=== PATIENT | male | born 1965 | race Caucasian/White ===

== ENCOUNTER 2016-09-23 19:53 | Emergency (ER) | payer MEDICARE ==
[2016-09-23] MEDS ORDERED: ZIPRASIDONE MESYLATE 20 MG VIAL IM ONE (20:37)
[2016-09-23] MEDS ORDERED: diphenhydrAMINE HCL 50 MG/ML VIAL IM ONE (20:37)
[2016-09-23] MEDS ORDERED: LORazepam 2 MG/ML DISP.SYRIN IM ONE (20:37)
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
[2016-09-23 20:50] LABS: Hematocrit 49.5 % (42.0-52.0); Mean Cell Volume 92.4 fl (78-100); Mean Corpuscular Hemoglobin 31.7 pg (27-31); Mean Corpuscular Hgb Conc 34.3 g/dl (32-36); Mean Platelet Volume 9.9 fl (6.0-9.5); Neutrophil # 7.5 K/mm3 (1.3-6.0); Neutrophil % 72.9 % (42-75.0); Platelet Count 227 K/mm3 (150-450); Red Blood Count 5.36 M/mm3 (4.7-6.0); Red Cell Distribution Width 13.6 % (11.5-14.0); White Blood Count 10.3 K/mm3 (4.0-10.5)
--- OUTSIDE RECORDS SUMMARY | 2016-09-23 20:52 | XMS REPORT | Continuity of Care Document ---
:1965 Author Organization [facility] ([facility]) Address [place] [address] Phone [phone] Care Team Providers Name Role Phone Elian Cortez Primary Care Provider [phone] Source Comments This disclosure is being made pursuant to the Care Everywhere program, applicable federal and state laws, and may not contain all informaitonavailable regarding this patient.[facility] ([facility]) Active Allergies and Adverse Reactions No Known Allergies Current Medications Prescription Sig. Disp. Refills Start Date End Date Status clonazePAM 0.5 mg Take 0.5 mg by Active tablet mouth 3 times daily SERTraline 100 mg Take 100 mg by Active tablet mouth daily QUEtiapine 100 mg Take 100 mg by Active tablet mouth at bedtime as needed atorvastatin 40 mg Take 1 tablet (40 90 tablet 4 07/22/2015 Active tablet mg total) by mouth every evening aspirin 81 mg chewable Take 1 tablet (81 90 tablet 4 07/22/2015 Active tablet mg total) by mouth daily clopidogrel 75 mg Take 1 tablet (75 90 tablet 4 07/22/2015 Active tablet mg total) by mouth daily metoPROLol tartrate 25 Take 1/2 tablet 90 tablet 4 07/22/2015 Active mg tablet (12.5 mg total) by mouth 2 times daily nitroglycerin 0.[address] 1 tablet 25 tablet 11 07/22/2015 Active tablet (0.4 mg total) under the tongue every 5 minutes as needed potassium chloride 10 03/16/2016 Active mEq XR capsule lisinopril 2.5 mg Take 2.5 mg by 03/16/2016 Active tablet mouth daily. furosemide 20 mg tablet 03/16/2016 Active divalproex 500 mg XR 03/17/2016 Active tablet (24 hour) Active Problems Problem Noted Date History of heart block 07/20/2015 Chest pain 07/17/2015 Lumbago 10/05/2006 Hypertension Hyperlipidemia Old myocardial infarction Coronary artery disease Overview: CARDIOVASCULAR PROCEDURES CATH Cath:1. Occluded distal RCA with heavy thrombotic burden. PCI not done due to completed infarct, and absence of chest pain 2. Depressed LV systolic function (LVEF ~40% with inferior akinesis) 2014 ECHO Echo:Normal left ventricular size. Left ventricular wall thickness is upper limit of normal . LV Ejection Fraction=50-55% (based on visual estimate). E/E' ratio is 8.4, which predicts normal LV filling pressure. No regional wall motion abnormalities noted. No significangt valvujlar abnormalities. 07/17/2015 Echo: [facility]. EF 35%. Mild MR. 11/10/2015 Tobacco abuse Noncompliance with medication regimen Resolved Problems Problem Noted Date Resolved Date Junctional rhythm 07/20/2015 05/03/2016 Acute systolic heart failure 07/20/2015 04/26/2016 ST elevation myocardial infarction (STEMI) of inferior wall, 07/18/201504/26 initial episode of care Social History Tobacco Use Types Packs/Day Years Used Date Current Every Day Smoker 1 6 Tobacco Cessation:Ready to Quit: Yes; Counseling Given: Yes Comments: Alcohol Use Drinks/Week oz/Week Comments No 0 Standard drinks or equivalent 0.0 Last Filed Vital Signs Vital Sign Reading Time Taken Blood Pressure 110/64 05/03/2016 9:55 AM CDT Pulse 72 05/03/2016 9:55 AM CDT Temperature 36.6 C (97.9 F) 07/22/2015 11:57 AM WATCH DIAL PRINTER Respiratory Rate 16 07/22/2015 11:57 AM WATCH DIAL PRINTER Height 1.803 m (5' 11") 05/03/2016 9:55 AM CDT Weight 113.853 kg (251 lb) 05/03/2016 9:55 AM CDT Body Mass Index 35.02 05/03/2016 9:55 AM CDT Oxygen Saturation 94% 07/22/2015 11:57 AM WATCH DIAL PRINTER Plan of Care Health Maintenance Due Date Last Done Comments HCV Screening 1965 Hepatitis B Vaccine (1 of 3 - Primary Series) 1965 Tdap Vaccine 11/11/1974 MMR Vaccine 11/11/1981 Td Vaccine 11/11/1981 Pneumococcal Vaccine (1 of 1 - PPSV23) 11/11/1982 Colonoscopy 11/11/2013 Prostate Cancer Screening 11/11/2013 Influenza Vaccine: Seasonal (#1) 02/29/2016 Lipid Disorder Screening 07/17/2020 07/17/2015 Results from Last 3 Months Not on file
[2016-09-23] MEDS ORDERED: diphenhydrAMINE HCL 50 MG/ML VIAL ONE (21:04)
[2016-09-23] MEDS ORDERED: LORazepam 2 MG/ML DISP.SYRIN ONE (21:05)
[2016-09-23 21:10] LABS: ALT 23 U/L (19-67); AST 24 U/L (0-48); Albumin * 4.4 gm/dl (3.4-5.0); Alkaline Phosphatase * 104 U/L (50-170); Anion Gap 12.3 mmol/L (6.8-13.8); BUN/Creatinine Ratio 6.3 (9.0-21.6); Bilirubin, Total 1.3 mg/dL (0.0-1.1); Blood Urea Nitrogen 8 mg/dL (6-23); Ca. Corrected For Albumin 8.6 mg/dL (8.4-10.2); Calcium * 9.2 mg/dL (7.9-10.9); Carbon Dioxide 27.5 mmol/L (24-32.6); Chloride 103 mmol/L (97-106); Glucose * 90 mg/dL (70-110); Potassium 3.8 mmol/L (3.4-4.6); Sodium 139 mmol/L (132-142); Total Protein 8.7 gm/dL (6.2-8.2)
[2016-09-23] MEDS ORDERED: ONDANSETRON 4 MG TAB.RAPDIS PO ONE (21:11)
[2016-09-23] MEDS ORDERED: ONDANSETRON 4 MG TAB.RAPDIS ONE (21:12)
[2016-09-23 21:13] LABS: Troponin I Less than 0.017 ng/ml (0.00-0.10)
[2016-09-23 21:29] LABS: Cocaine Ur Negative (NEGATIVE); Urine Barbiturate Negative (NEGATIVE); Urine Opiates Negative (NEGATIVE); Urine PCP Negative (NEGATIVE)
[2016-09-23 21:33] LABS: Urine Benzodiazepines Positive (NEGATIVE); Urine THC Positive (NEGATIVE)
[2016-09-23 21:35] LABS: Urine Appearance Clear; Urine Bilirubin Negative (NEGATIVE); Urine Color Yellow; Urine Ketone Negative (NEGATIVE); Urine Nitrite Negative (NEGATIVE); Urine Protein Negative (NEGATIVE); Urine Specific Gravity 1.025 SP.GR. (1.005-1.030); Urine Urobilinogen Normal (NORMAL); Urine pH 5.5 pH (5.0-7.0)
[2016-09-23 21:36] LABS: Urine Bacteria None Seen; Urine Blood 25 /ul (NEGATIVE); Urine RBC 0-5 /hpf (0-5); Urine WBC 0-5 /hpf (0-5)
[2016-09-24] MEDS ORDERED: NORMAL SALINE 2,000 ML IV ONE (02:11)
[2016-09-24] MEDS ORDERED: FAMOTIDINE 10 MG/ML VIAL IV ONE (02:11)
[2016-09-24] MEDS ORDERED: ONDANSETRON HCL/PF 2 MG/ML VIAL IV ONE (02:11)
[2016-09-24 10:27] VITALS: BP 119/81
== END 2016-09-24 09:38 | disposition home or self-care (01) ==
LOC: ER 19:53
DX: F41.1 Generalized anxiety disorder (principal); R45.4 Irritability and anger; F33.3 Major depressive disorder, recurrent, severe with psychotic symptoms; Z72.0 Tobacco use
CPT/HCPCS: 36415; 71020; 80053; 80307; 81001; 84484; 85025; 93005; 94760; 96372; 99284; G0480; G0481

== ENCOUNTER 2017-03-23 13:16 | Emergency (ER) | payer MEDICARE ==
[2017-03-23 14:29] LABS: Hematocrit 43.2 % (42.0-52.0); Hemoglobin 15.1 gm/dL (13.5-18.0); Mean Cell Volume 93.7 fl (78-100); Mean Corpuscular Hemoglobin 32.8 pg (27-31); Mean Platelet Volume 9.8 fl (6.0-9.5); Neutrophil # 4.2 K/mm3 (1.3-6.0); Platelet Count 223 K/mm3 (150-450); Red Blood Count 4.61 M/mm3 (4.7-6.0); White Blood Count 6.8 K/mm3 (4.0-10.5)
[2017-03-23] MEDS ORDERED: HALOPERIDOL LACTATE 5 MG/ML VIAL IM ONE (14:42)
[2017-03-23 14:50] LABS: ALT 94 U/L (19-67); AST 96 U/L (0-48); Acetaminophen * 0.7 mcg/mL (10.0-30.0); Albumin * 3.4 gm/dl (3.4-5.0); Alkaline Phosphatase * 76 U/L (50-170); Anion Gap 7.1 mmol/L (6.8-13.8); BUN/Creatinine Ratio 11.1 (9.0-21.6); Bilirubin, Total 0.3 mg/dL (0.0-1.1); Blood Urea Nitrogen 11 mg/dL (6-23); Ca. Corrected For Albumin 9.1 mg/dL (8.4-10.2); Calcium * 8.9 mg/dL (7.9-10.9); Carbon Dioxide 28.5 mmol/L (24-32.6); Chloride 102 mmol/L (97-106); Glucose * 96 mg/dL (70-110); Potassium 3.6 mmol/L (3.4-4.6); Salicylate 3.3 mg/dL (2.8-20.0); Sodium 134 mmol/L (132-142); Total Protein 7.2 gm/dL (6.2-8.2)
[2017-03-23 14:50] LABS: Urine Bilirubin Negative (NEGATIVE); Urine Blood Negative /ul (NEGATIVE); Urine Ketone Negative (NEGATIVE); Urine Nitrite Negative (NEGATIVE); Urine Protein Negative (NEGATIVE); Urine Urobilinogen Normal (NORMAL)
[2017-03-23 15:00] LABS: Urine Appearance Clear; Urine Bacteria None Seen; Urine Color Yellow; Urine RBC None Seen /hpf (0-5); Urine WBC None Seen /hpf (0-5)
[2017-03-23 15:07] LABS: Cocaine Ur Negative (NEGATIVE); Urine Barbiturate Negative (NEGATIVE); Urine Benzodiazepines Negative (NEGATIVE); Urine PCP Negative (NEGATIVE)
[2017-03-23 15:10] LABS: Urine THC Positive (NEGATIVE)
[2017-03-23] MEDS ORDERED: HALOPERIDOL LACTATE 5 MG/ML VIAL ONE (15:11)
[2017-03-23 15:25] LABS: Urine Opiates Positive (NEGATIVE)
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
--- NOTE | 2017-03-23 18:36 | ERNOTE ---
Psychological HPI - Date Date of Service: 03/23/17 - General Chief Complaint: Psychiatric Problem Source: Reports: patient Exam Limitations: Reports: clinical condition - Immun/Allergies/Home Medications Allergies/Adverse Reactions: Allergies No Known Allergies Allergy (Verified 03/23/17 13:27) Home Medications: HOME MEDICATIONS Aspirin [Aspirin EC] 81 mg PO DAILY@1200 #100 tablet. 03/01/16 [Last Taken Unknown] Atorvastatin Calcium 20 mg PO DAILY #30 tablet 03/01/16 [Last Taken Unknown] Sertraline HCl [Zoloft] 200 mg PO DAILY 03/01/16 [Last Taken 02/29/16] clonazePAM [Klonopin] 2 mg PO TID 03/01/16 [Last Taken 09/23/16 8 tablets] - History of Present Illness Narrative: Patient presents to the ED for bizarre behavior. I reviewed nursing noted. When I ask him why he is here he tells me that he hit his head and saw laughing puppets. He tells me he feels weak all over. He is not very forthcoming with me but tells be he has an orange piece of paper that will tell me why he is here. He denies CP/SOB. States some headache but cannot rate it. Nursing noted bizarre and disorganized thoughts. He is see by psych here. It is noted that he has been having progressively worsening and bizarre behavior. no clear SI or HI. Time Seen by Provider: 03/23/17 13:49 Onset/duration: Reports: gradual onset Intent: Denies: suicide Associated Symptoms: Denies: suicidal thoughts Prior Treament: Denies: recently seen Review of Systems - Narrative Narrative: difficult to obtain given his underlying psychiatric symptoms. - Review of Systems Constitutional: Absent: fever Respiratory: Absent: shortness of breath Cardiology: Absent: chest pain Gastrointestinal/Abdominal: Absent: abdominal pain Neurological: Present: See HPI - Patient's Past Medical History Patient History - Medical: Anxiety, Arthritis, Depression, Other Patient History - Cardiac/Respiratory: Bronchitis, Hypertension, Hyperlipidemia , Myocardial Infarction, Pneumonia Patient History - Cancer: No Hx of Cancer Patient History - Surgical Procedures: Cardiac stent, T & A, Other, Orthopedic Patient History - Other: None - Family History Father Family History - Medical: , Other - Social History Living Situations: home Abuse History: No History of abuse Psych History: Hx of Depression, Hx of Violent Behavior, Current tx/ever been on anti-depressants or anti-anxiety meds Smoking Status: Current every day smoker Alcohol Use: occasionally Drug Use: none - Immunizations Immunizations Up to Date: Yes Hx Pneumococcal Vaccination: No History of Influenza Vaccine: No Physical Exam - Physical Exam General Appearance: Present: alert, no apparent distress Head Exam: Present: normal inspection, no evidence of injury Eye Exam: Normal inspection: bilateral, PERRL: bilateral Ears, Nose, Throat: Present: normal ENT inspection Neck: Present: normal inspection, nontender Respiratory: Present: no respiratory distress, no accessory muscle use, lungs clear Cardiovascular/Chest: Present: regular rate, rhythm Gastrointestinal/Abdominal: Present: normal bowel sounds, nontender, soft Back Exam: Present: no vertebral tenderness Extremity Exam: Present: normal range of motion Neurological Exam: Present: alert, other - no acute unilateral focal motor or sensory deficits. Bizarre thoughts, seems disorganized. Skin Exam: Present: normal color, warm/dry ED Progress - Results and Orders Patient's Lab Results:: I have reviewed the patient's lab results. - Vital Signs Patient's Vital Signs:: I have reviewed the patient's vital signs. Vital Signs: Vital Signs 03/23/17 03/23/17 03/23/17 13:21 13:46 15:05 Temperature 36.5 C Pulse Rate 95 95 78 Respiratory 15 16 Rate Blood Pressure 146/91 106/73 O2 Sat by Pulse 96 97 Oximetry 03/23/17 03/23/17 03/23/17 15:19 15:50 16:07 Temperature Pulse Rate 80 76 73 Respiratory 15 15 15 Rate Blood Pressure 105/88 96/48 91/53 O2 Sat by Pulse 96 95 95 Oximetry - CT/Ultrasound CT/Ultrasound Narrative: CT head, official radiology report reviewed - Progress/Reassessment Chief Complaint: Psychiatric Problem Progress Note-Subjective: 03/23/17 18:32 Patient medically stable. Seen in the ED by Psychiatry, Dr Srivastava is his primary psychiatrist saw the patient in the ED and arranged for his discharge with follow-up in his office. He felt patient can be discharged. Departure Clinical Impression: Psychiatric complaint - Departure Disposition: Home self-care Condition: Stable Additional Instructions: Follow-up with Dr Srivastava in the office as directed. Return if you have thoughts about harming your self or others or if your condition worsens or changes in any way. Referrals: Elian Etienne MD [Primary Care Provider] -
[2017-03-23 18:38] VITALS: BP 130/86
== END 2017-03-23 18:47 | disposition home or self-care (01) ==
LOC: ER 13:16
DX: F69 Unspecified disorder of adult personality and behavior (principal); F17.200 Nicotine dependence, unspecified, uncomplicated
CPT/HCPCS: 36415; 70450; 80053; 80307; 81001; 84443; 85025; 96372; 99283; G0480; G0481

== ENCOUNTER 2018-11-06 19:41 | Observation (INO) ==
--- NOTE | 2018-11-06 20:00 | ERNOTE ---
Chest Pain/Cardiac HPI Chief Complaint: Chest Pain Time Seen by Provider: 11/06/18 19:53 Source: patient Exam Limitations: no limitations Immunizations: IMMUNIZATION HX Immunizations Up to Date Yes History of Influenza Vaccine No Hx Pneumococcal Vaccination No Allergies/Adverse Reactions: Allergies No Known Allergies Allergy (Verified 11/03/18 10:24) Home Medications: HOME MEDICATIONS Atorvastatin Calcium 40 mg PO DAILY #14 tab 10/17/18 [Last Taken Unknown] Clopidogrel Bisulfate [Plavix] 75 mg PO DAILY #14 tab 10/17/18 [Last Taken Unknown] Lisinopril [Prinivil] 10 mg PO DAILY #14 tab 10/17/18 [Last Taken Unknown] Potassium Chloride [K-Dur] 20 meq PO DAILY #14 tablet.sa 10/17/18 [Last Taken Unknown] Furosemide [Lasix] 60 mg PO DAILY #12 tab 10/29/18 [Last Taken Unknown] HYDROcodone/ACETAMINOPHEN [[place] 5-325] 1 ea PO Q4H PRN #10 tab 11/03/18 [Last T aken Unknown] Levofloxacin [Levaquin] 500 mg PO DAILY #7 tab 11/03/18 [Last Taken Unknown] Acetaminophen [Tylenol] 650 mg PO Q6H PRN 11/06/18 [Last Taken Unknown] Metoprolol Succinate [Toprol Xl] 50 mg PO DAILY 11/06/18 [Last Taken Unknown] hydrOXYzine HCL [Atarax] 25 mg PO Q4H PRN 11/06/18 [Last Taken Unknown] Narrative: Pt states that he has had chest pain for a month. Today around 13:00 he had increase in chest and head pressure. movement makes it worse and sitting up makes it somewhat better. Pt lays on the bed with eyes closed and head turned away and only occasionally looks toward staff. Timing: getting worse Severity/Quality: moderate, pressure Location: central Chest Pain Radiation: no radiation Activities at Onset: none Associated Symptoms: Present: headache - pressure also, shortness of breath, celia phoresis Prior Chest Pain/Cardiac Workup: Reports: prior chest pain Review of Systems - Review of Systems Constitutional: Present: chills, diaphoresis ENT: Present: nose congestion Respiratory: Present: shortness of breath, cough Cardiology: Present: See HPI, chest pain Gastrointestinal/Abdominal: Present: nausea Genitourinary: Present: decreased urinary output Musculoskeletal: Present: back pain, muscle pain Neurological: Present: dizziness/light-headedness Endocrine: Present: excessive sweating Medical History (Last Reviewed 11/06/18 @ 23:45 by Constance Ly RN) ADHD Onset Date: Unknown Anxiety Onset Date: Unknown CAD (coronary artery disease) Onset Date: ~05/02/17 CHF (congestive heart failure) Onset Date: Unknown Depression Onset Date: Unknown Head injury Onset Date: ~03/18/17 got head stuck between a table and the wall at [facility] Hyperlipidemia Onset Date: Unknown Hypertension Onset Date: Unknown Morbid obesity Onset Date: Unknown Myocardial infarct Onset Date: ~07/18/15 Neck pain Onset Date: ~05/02/17 PTSD (post-traumatic stress disorder) Onset Date: Unknown TBI (traumatic brain injury) Onset Date: ~05/02/17 Surgical History: Surgical History (Last Reviewed 11/06/18 @ 23:55 by Constance Ly RN) History of cataract surgery Onset Date: ~2011 bilateral History of incision and drainage Onset Date: ~06/06/16 abscess . Bagan- rafat rectal History of neck surgery Onset Date: ~2012 Hx of cardiac cath Onset Date: Unknown Tonsillectomy planned Onset Date: Unknown Family History: Family History (Last Reviewed 11/06/18 @ 23:55 by Constance Ly RN) Father , 66 Myocardial infarction Heart disease Mother Hypertension Heart disease Breathing problem Social History: Preferred Language Polish Do you have any faith or No cultural preference? Smoking Status Current every day smoker Have you smoked in the past 12 Yes months Do you dip or chew tobacco No Abuse History No History of abuse Psych History Hx of Depression,Hx of Violent Behavior, Currently on Meds Alcohol Use none Drug Use none (Last Updated 09/19/18 @ 15:33 by Gabby Angeles MD) No Social History Section defined Physical Exam - Physical Exam General Appearance: Present: wd/wn, alert, mild distress Head Exam: Present: normal inspection, no evidence of injury Neck: Present: normal inspection, nontender, supple Respiratory: Present: no respiratory distress, normal breath sounds, chest nontender, lungs clear Cardiovascular/Chest: Present: no murmur, irregularly irregular Gastrointestinal/Abdominal: Present: normal bowel sounds, nontender, nondistended, soft Back Exam: Present: normal range of motion, no vertebral tenderness Extremity Exam: Present: extremity edema - 2+ Neurological Exam: Present: alert Skin Exam: Present: normal color, warm/dry Lymphatic Exam: Present: no adenopathy Progress - Results and Orders Patient's Lab Results:: I have reviewed the patient's lab results. Results and Orders: Laboratory Tests 11/06/18 11/06/18 11/06/18 20:10 20:10 20:32 WBC 8.1 Hgb 14.2 Hct 42.4 Plt Count 212 Sodium 132 Potassium 4.1 Chloride 100 Anion Gap 13.9 H BUN 38 H D Creatinine 1.65 H Random Glucose 106 Calcium 8.8 Total Bilirubin 0.6 AST 33 ALT 24 Alkaline Phosphatase 160 Troponin I 0.019 B-Natriuretic Peptide 3008 H Total Protein 6.8 Albumin 2.9 L 11/07/18 02:00 WBC Hgb Hct Plt Count Sodium Potassium Chloride Anion Gap BUN Creatinine Random Glucose Calcium Total Bilirubin AST ALT Alkaline Phosphatase Troponin I Less than 0.017 B-Natriuretic Peptide Total Protein Albumin - Vital Signs Patient's Vital Signs:: I have reviewed the patient's vital signs. Vital Signs: Vital Signs 11/06/18 19:44 11/06/18 19:52 Temperature 37.1 C Pulse Rate 100 93 Respiratory Rate 18 16 Blood Pressure 110/76 110/76 O2 Sat by Pulse Oximetry 97 96 - EKG EKG #1 EKG: NSR, other - 1st degree AV block - X-Ray X-Ray #1 X-Ray: chest Interpretation: Interp. by me X-ray Comments: Large right pleural effusion, not seen 11/03/18. - Progress/Reassessment Chief Complaint: Chest Pain Progress:: Improved Progress Note-Subjective: Pt has had multiple ER visits with diuretic treatment and antibiotic treatment and has only worsened. With elevated BNP, large right pleural effusion and pleuritic pain. I believe pt needs inpatient IV diuresis and possible drainage of his pleural effusion. 11/06/18 22:[address] Church, he agrees with admit. 11/06/18 22:03 Departure Clinical Impression: Pleural effusion due to CHF (congestive heart failure), Pleuritic chest pain - Departure Disposition: Still a patient Condition: Good
[2018-11-06 20:16] LABS: Hematocrit 42.4 % (42.0-52.0); Hemoglobin 14.2 gm/dL (13.5-18.0); Mean Cell Volume 94.4 fl (78-100); Mean Corpuscular Hemoglobin 31.6 pg (27-31); Mean Corpuscular Hgb Conc 33.5 g/dl (32-36); Mean Platelet Volume 10.1 fl (8-11.3); Neutrophil % 73.2 % (42-75.0); Platelet Count 212 K/mm3 (150-450); Red Blood Count 4.49 M/mm3 (4.7-6.0); Red Cell Distribution Width 14.3 % (11.5-14.0); White Blood Count 8.1 K/mm3 (4.0-10.5)
[2018-11-06 20:30] LABS: Albumin * 2.9 gm/dl (3.4-5.0); Anion Gap 13.9 mmol/L (6.8-13.8); Bilirubin, Total 0.6 mg/dL (0.0-1.1); Ca. Corrected For Albumin 9.4 mg/dL (8.4-10.2); Calcium * 8.8 mg/dL (7.9-10.9); Carbon Dioxide 22.2 mmol/L (24-32.6); Potassium 4.1 mmol/L (3.4-4.6); Total Protein 6.8 gm/dL (6.2-8.2)
[2018-11-06 20:55] LABS: Troponin I 0.019 ng/mL (0.00-0.10)
[2018-11-06] MEDS ORDERED: FUROSEMIDE 10 MG/ML VIAL IV ONE (22:16)
[2018-11-06] MEDS ORDERED: MORPHINE SULFATE 2 MG/ML DISP.SYRIN IV ONE (22:16)
--- NOTE | 2018-11-07 01:30 | HP ---
Chief Complaint - Chief Complaint Date of Service: 11/07/18 Time of Service: 01:30 Chief Complaint: Shortness of breath, chest pain History of Present Illness: Edy is a 53 yo male with chest pain. Pain with inhalation. He denies shortness of breath. He presented to the ER for evalution of chest pain which was negative for acute AL with negative troponin and acute EKG changes. Chest xray showed right moderate pleural effusion with associated atelectasis. No evidence of pneumonia. Medical History (Updated 11/22/18 @ 01:15 by Nacho Morrell DO) ADHD Onset Date: Unknown Anxiety Onset Date: Unknown CAD (coronary artery disease) Onset Date: ~05/02/17 CHF (congestive heart failure) Onset Date: Unknown Depression Onset Date: Unknown Head injury Onset Date: ~03/18/17 got head stuck between a table and the wall at [facility] Onset Date: Unknown Hypertension Onset Date: Unknown Morbid obesity Onset Date: Unknown Myocardial infarct Onset Date: ~07/18/15 Neck pain Onset Date: ~05/02/17 PTSD (post-traumatic stress disorder) Onset Date: Unknown TBI (traumatic brain injury) Onset Date: ~05/02/17 Surgical History: Surgical History (Updated 11/07/18 @ 01:30 by Pedrito Church DO) History of cataract surgery Onset Date: ~2011 bilateral History of incision and drainage Onset Date: ~06/06/16 abscess . Bagan- rafat rectal History of neck surgery Onset Date: ~2012 Hx of cardiac cath Onset Date: Unknown Tonsillectomy planned Onset Date: Unknown Family History: Family History (Updated 02/06/18 @ 10:33 by Meagan Gross RN) Father , 66 Myocardial infarction Heart disease Mother Hypertension Heart disease Breathing problem Social History: Patient Lives/Resources Home Utilized Occupation [employer] retired Preferred Language Kyrgyz Do you have any restoration or Yes: [employer] cultural preference? Smoking Status Current some day smoker Have you smoked in the past 12 Yes months Do you dip or chew tobacco No Abuse History No History of abuse Psych History Hx of Depression,Hx of Violent Behavior, Currently on Meds Alcohol Use none Drug Use none (Last Updated 09/19/18 @ 15:33 by Gabby Angeles MD) No Social History Section defined Review Of Systems (GEN) - Review of Systems Generalized/Overall Review: Absent: Weakness, Chills, Fever EENTM: Present: No Symptoms Reported Respiratory: Present: Cough Cardiac: Present: Chest Pain Abdominal: Absent: Nausea, Vomiting Genitourinary: Present: No Symptoms Reported Musculoskeletal: Present: No Symptoms Reported Neurological: Present: No Symptoms Reported Skin: Present: No Symptoms Reported Endocrine: Present: No Symptoms Reported Immunizations: IMMUNIZATION HX Immunizations Up to Date Yes History of Influenza Vaccine No Hx Pneumococcal Vaccination No Allergies/Adverse Reactions: Allergies Allergy/AdvReac Type Severity Reaction Status Date / Time No Known Allergies Allergy Verified 11/07/18 18:22 Home Medications: HOME MEDICATIONS Atorvastatin Calcium 40 mg PO DAILY #14 tab 10/17/18 [Last Taken Unknown] Clopidogrel Bisulfate [Plavix] 75 mg PO DAILY #14 tab 10/17/18 [Last Taken Unknown] Lisinopril [Prinivil] 10 mg PO DAILY #14 tab 10/17/18 [Last Taken Unknown] Potassium Chloride [K-Dur] 20 meq PO DAILY #14 tablet.sa 10/17/18 [Last Taken Unknown] Furosemide [Lasix] 60 mg PO DAILY #12 tab 10/29/18 [Last Taken Unknown] Acetaminophen [Tylenol] 650 mg PO Q6H PRN 11/06/18 [Last Taken Unknown] Metoprolol Succinate [Toprol Xl] 50 mg PO DAILY 11/06/18 [Last Taken Unknown] hydrOXYzine HCL [Atarax] 25 mg PO Q4H PRN 11/06/18 [Last Taken Unknown] Albuterol Sulfate [Albuterol Sulfate 2.5 MG/0.5ML] 1 vial INHALATION Q4H PRN #30 vial 11/07/18 [Last Taken Unknown] HYDROcodone/ACETAMINOPHEN [[place] 5-325] 1 tab PO Q4H PRN 11/21/18 [Last Taken Unknown] Furosemide [Lasix] 60 mg PO DAILY #30 tab 11/22/18 [Last Taken Unknown] Potassium Chloride [K-Dur] 20 meq PO DAILY #10 tab 11/22/18 [Last Taken Unknown] Exam - Exam Vital Signs: Vital Signs - Last Taken Temp 36.2 C 11/06/18 22:25 Pulse 110 H 11/06/18 23:04 Resp 18 11/06/18 23:04 BP 93/69 11/06/18 23:04 Pulse Ox 97 11/06/18 23:04 Constitutional: Present: Alert, Oriented x3 ENT Exam: Present: hearing grossly normal Eye Exam: bilateral eye: normal inspection Respiratory: Present: decreased breath sounds - on right base Cardiovascular/Chest: Present: regular rate, rhythm, no murmur Peripheral Pulses: radial (R): 2+, radial (L): 2+ Abdomen: Present: Normal bowel sounds, soft, nontender, nondistended Extremity: Present: normal inspection, normal capillary refill. Absent: lower extremity edema Skin Exam: Present: normal color, warm/dry, no cyanosis Diagnostic Studies: Abnormal Lab Results 11/06/18 11/06/18 11/06/18 Range/Units 20:10 20:10 20:32 RBC 4.49 L (4.7-6.0) M/mm3 MCH 31.6 H (27-31) pg RDW 14.3 H (11.5-14.0) % Immature Gran % (Auto) 0.90 H (0.001-0.429) % Immature Gran # (Auto) 0.07 H (0.000-0.0310) K/mm3 Lymphocytes % 15.3 L (20-51) % Monocytes % 9.5 H (0.0-9) % Lymphocytes # 1.24 L (1.5-3.5) k/mm3 Carbon Dioxide 22.2 L (24-32.6) mmol/L Anion Gap 13.9 H (6.8-13.8) mmol/L BUN 38 H D (6-23) mg/dL Creatinine 1.65 H (0.4-1.4) mg/dL Est GFR (Non-Af Amer) 46 L (60-130) mL/min BUN/Creatinine Ratio 23.0 H (9.0-21.6) B-Natriuretic Peptide 3008 H (5-140) pg/mL Albumin 2.9 L (3.4-5.0) gm/dl Laboratory Results WBC 8.1 K/mm3 (4.0-10.5) 11/06/18 20:10 RBC 4.49 M/mm3 (4.7-6.0) L 11/06/18 20:10 Hgb 14.2 gm/dL (13.5-18.0) 11/06/18 20:10 Hct 42.4 % (42.0-52.0) 11/06/18 20:10 MCV 94.4 fl (78-100) 11/06/18 20:10 MCH 31.6 pg (27-31) H 11/06/18 20:10 MCHC 33.5 g/dl (32-36) 11/06/18 20:10 RDW 14.3 % (11.5-14.0) H 11/06/18 20:10 Plt Count 212 K/mm3 (150-450) 11/06/18 20:10 MPV 10.1 fl (8-11.3) 11/06/18 20:10 Immature Gran % (Auto) 0.90 % (0.001-0.429) H 11/06/18 20:10 Immature Gran # (Auto) 0.07 K/mm3 (0.000-0.0310) H 11/06/18 20:10 Neutrophils % 73.2 % (42-75.0) 11/06/18 20:10 Lymphocytes % 15.3 % (20-51) L 11/06/18 20:10 Monocytes % 9.5 % (0.0-9) H 11/06/18 20:10 Eosinophils % 0.7 % (0.0-3.0) 11/06/18 20:10 Basophils % 0.4 % (0.0-1.0) 11/06/18 20:10 Nucleated RBC % 0.0 k/mm3 (0-1) 11/06/18 20:10 Neutrophils # 6.0 K/mm3 (1.3-6.0) 11/06/18 20:10 Lymphocytes # 1.24 k/mm3 (1.5-3.5) L 11/06/18 20:10 Monocytes # 0.8 k/mm3 (0.0-1.0) 11/06/18 20:10 Eosinophils # 0.1 k/mm3 (0.0-0.7) 11/06/18 20:10 Absolute Basophils 0.0 k/mm3 (0.0-0.1) 11/06/18 20:10 Sodium 132 mmol/L (132-142) 11/06/18 20:10 Plasma Sodium 132 mmol/L (130-142) 11/06/18 20:10 Potassium 4.1 mmol/L (3.4-4.6) 11/06/18 20:10 Chloride 100 mmol/L (97-106) 11/06/18 20:10 Carbon Dioxide 22.2 mmol/L (24-32.6) L 11/06/18 20:10 Anion Gap 13.9 mmol/L (6.8-13.8) H 11/06/18 20:10 BUN 38 mg/dL (6-23) H D 11/06/18 20:10 Creatinine 1.65 mg/dL (0.4-1.4) H 11/06/18 20:10 Est GFR (Non-Af Amer) 46 mL/min (60-130) L 11/06/18 20:10 BUN/Creatinine Ratio 23.0 (9.0-21.6) H 11/06/18 20:10 Random Glucose 106 mg/dL (70-110) 11/06/18 20:10 Calcium 8.8 mg/dL (7.9-10.9) 11/06/18 20:10 Calcium Adj for Albumin 9.4 mg/dL (8.4-10.2) 11/06/18 20:10 Total Bilirubin 0.6 mg/dL (0.0-1.1) 11/06/18 20:10 AST 33 U/L (0-48) 11/06/18 20:10 ALT 24 U/L (19-67) 11/06/18 20:10 Alkaline Phosphatase 160 U/L (50-170) 11/06/18 20:10 Troponin I 0.019 ng/mL (0.00-0.10) 11/06/18 20:10 B-Natriuretic Peptide 3008 pg/mL (5-140) H 11/06/18 20:32 Total Protein 6.8 gm/dL (6.2-8.2) 11/06/18 20:10 Albumin 2.9 gm/dl (3.4-5.0) L 11/06/18 20:10 Assessment/Plan - Narrative Narrative: Edy is a 53 yo male with chest pain. Initial evaluation is negative for acute AL. Will admit to observation and monitor on telemetry and repeat tr oponin. He also has a right sided pleural effusion with associated atelectasis. Discussed deep breathing exercises. No respiratory distress or failure. This does not meet criteria for inpatient thoracentesis as there is no respiratory compromise. He may attempt outpatient treatment with breathing exercises and increased mobility. Will recommend follow up chest xray to monitor and if not improved he may need diagnostic thoracentesis. Will monitor respiratory status while in observation and perform thoracentesis if there is any concern for respiratory compromise. - Assessment/Plan (1) Chest pain of uncertain etiology Problem: Acute (2) Pleural effusion Problem: Acute
[2018-11-07] MEDS ORDERED: ONDANSETRON HCL/PF 2 MG/ML VIAL IV PRN (02:24)
[2018-11-07] MEDS ORDERED: hydrOXYzine HCL 25 MG TABLET PO PRN (02:29)
[2018-11-07] MEDS ORDERED: ACETAMINOPHEN 325 MG TABLET PO PRN (02:29)
[2018-11-07] MEDS: HYDROcodone/ACETAMINOPHEN 1 EACH TABLET PO PRN ×2 (02:48→10:06)
[2018-11-07] MEDS ORDERED: AZITHROMYCIN 500 MG in DEXTROSE 5 % IN WATER 250 ML IV SCH ×2 (03:00)
[2018-11-07] MEDS ORDERED: METOPROLOL SUCCINATE 50 MG TABLET.SA PO SCH (09:00)
[2018-11-07] MEDS ORDERED: POTASSIUM CHLORIDE 20 MEQ TABLET.SA PO SCH (09:00)
[2018-11-07] MEDS ORDERED: LISINOPRIL 10 MG TABLET PO SCH (09:00)
[2018-11-07] MEDS ORDERED: CLOPIDOGREL BISULFATE 75 MG TABLET PO SCH (09:00)
[2018-11-07] MEDS ORDERED: ROSUVASTATIN CALCIUM 10 MG TABLET PO SCH (09:00)
[2018-11-07] MEDS ORDERED: FUROSEMIDE 20 MG TABLET PO SCH (09:00)
[2018-11-07 10:24] LABS: Hematocrit 44.4 % (42.0-52.0); Hemoglobin 14.9 gm/dL (13.5-18.0); Mean Cell Volume 94.1 fl (78-100); Mean Corpuscular Hemoglobin 31.6 pg (27-31); Mean Corpuscular Hgb Conc 33.6 g/dl (32-36); Mean Platelet Volume 10.2 fl (8-11.3); Neutrophil # 6.1 K/mm3 (1.3-6.0); Neutrophil % 76.8 % (42-75.0); Platelet Count 198 K/mm3 (150-450); Red Blood Count 4.72 M/mm3 (4.7-6.0); Red Cell Distribution Width 14.3 % (11.5-14.0)
[2018-11-07 10:40] LABS: ALT 27 U/L (19-67); AST 32 U/L (0-48); Albumin * 2.9 gm/dl (3.4-5.0); Alkaline Phosphatase * 165 U/L (50-170); Anion Gap 13.9 mmol/L (6.8-13.8); BUN/Creatinine Ratio 23.4 (9.0-21.6); Bilirubin, Total 0.6 mg/dL (0.0-1.1); Blood Urea Nitrogen 36 mg/dL (6-23); Ca. Corrected For Albumin 9.4 mg/dL (8.4-10.2); Calcium * 8.8 mg/dL (7.9-10.9); Carbon Dioxide 23.6 mmol/L (24-32.6); Chloride 99 mmol/L (97-106); Glucose * 141 mg/dL (70-110); Potassium 4.5 mmol/L (3.4-4.6); Sodium 132 mmol/L (132-142)
[2018-11-07 10:52] LABS: Troponin I Less than 0.017 ng/mL (0.00-0.10)
--- NOTE | 2018-11-07 13:37 | DS ---
(1) Pneumonia Problem: Acute Qualifiers: Pneumonia type: due to unspecified organism Laterality: right Lung location: lower lobe of lung Qualified Code(s): J18.1 - Lobar pneumonia, unspecified organism (2) Pleural effusion Problem: Acute (3) PTSD, anxiety/ depression Problem: Chronic Description of Stay: Edy is a 52 yo male with pneumonia treated outpatient with levaquin that presented to the ER with reports of continued cough and shortness of breath. Chest xray revealed a pleural effusion at the site of pneumonia seen previously. I suspect he has a parapneumonic effusion and if pneumonia improves the effusion should improve as well. He has been on levaquin so he was given rocephin and azithromycin. He was admitted to observation to monitor for respiratory distress/failure. He did well without any significant dyspnea or hypoxia. As he is medically stable he is ok for discharge and the effusion needs to be followed as outpatient. I will send him home with cefdinir and azithromycin. He should have a repeat xray in 2-3 weeks to monitor effusion. I discussed a thoracentesis with him, but as he is not hypoxic I would recommend treating with antibiotics prior to doing a thoracentesis. If it does not resolve then he will need a diagnostic thoracentesis. Procedures Performed: none Results and Findings: Lab Pending Results 11/06/18 20:10: WBC 8.1, RBC 4.49 L, Hgb 14.2, Hct 42.4, MCV 94.4, MCH 31.6 H, MCHC 33.5, RDW 14.3 H, Plt Count 212, MPV 10.1, Immature Gran % (Auto) 0.90 H, Immature Gran # (Auto) 0.07 H, Neutrophils % 73.2, Lymphocytes % 15.3 L, Monocytes % 9.5 H, Eosinophils % 0.7, Basophils % 0.4, Nucleated RBC % 0.0, Neutrophils # 6.0, Lymphocytes # 1.24 L, Monocytes # 0.8, Eosinophils # 0.1, Absolute Basophils 0.0 11/06/18 20:10: Sodium 132, Plasma Sodium 132, Potassium 4.1, Chloride 100, Carbon Dioxide 22.2 L, Anion Gap 13.9 H, BUN 38 H D, Creatinine 1.65 H, Est GFR (Non-Af Amer) 46 L, BUN/Creatinine Ratio 23.0 H, Random Glucose 106, Calcium 8.8, Calcium Adj for Albumin 9.4, Total Bilirubin 0.6, AST 33, ALT 24, Alkaline Phosphatase 160, Troponin I 0.019, Total Protein 6.8, Albumin 2.9 L 11/06/18 20:32: B-Natriuretic Peptide 3008 H 11/07/18 02:00: Troponin I Less than 0.017 11/07/18 10:10: WBC 8.0, RBC 4.72, Hgb 14.9, Hct 44.4, MCV 94.1, MCH 31.6 H, MCHC 33.6, RDW 14.3 H, Plt Count 198, MPV 10.2, Immature Gran % (Auto) 0.90 H, Immature Gran # (Auto) 0.07 H, Neutrophils % 76.8 H, Lymphocytes % 12.5 L, Monocytes % 8.9, Eosinophils % 0.4, Basophils % 0.5, Nucleated RBC % 0.0, Neutrophils # 6.1 H, Lymphocytes # 1.00 L, Monocytes # 0.7, Eosinophils # 0.0, Absolute Basophils 0.0 11/07/18 10:10: Sodium 132, Plasma Sodium 133, Potassium 4.5, Chloride 99, Carbon Dioxide 23.6 L, Anion Gap 13.9 H, BUN 36 H, Creatinine 1.54 H, Est GFR (Non-Af Amer) 50 L, BUN/Creatinine Ratio 23.4 H, Random Glucose 141 H D, Calcium 8.8, Calcium Adj for Albumin 9.4, Total Bilirubin 0.6, AST 32, ALT 27, Alkaline Phosphatase 165, Troponin I Less than 0.017, Total Protein 7.0, Albumin 2.9 L Discharge Location: Home Disposition: Home self-care Condition: Good Discharge Activity: Activity as tolerated Discharge Diet: General/regular food Referrals: Loc Anderson MD [Non Staff Physicians] - One Week Problem Oriented Discharge Instructions to Patient/Family: Community-Acquired Pneumonia, Adult, [id number], Pleural Effusion Additional Patient Instructions (free text): -Please make TCM appointment unless custodial discharge. Thank you! [email or web address] @ [phone] appointment on MondayNovember 28 at 9:00am, they may call you sooner if an appointment becomes available before the November 28 date. [facility] is located at [address] in [place]. Prescriptions (Any new or edited meds): Cefdinir [Omnicef] 300 mg PO Q12H #20 cap Azithromycin [Zithromax] 250 mg PO DAILY #4 tab Complete Home Medications List: Complete Home Medication List: Atorvastatin Calcium 40 mg PO DAILY #14 tab 10/17/18 Clopidogrel Bisulfate [Plavix] 75 mg PO DAILY #14 tab 10/17/18 Lisinopril [Prinivil] 10 mg PO DAILY #14 tab 10/17/18 Potassium Chloride [K-Dur] 20 meq PO DAILY #14 tablet.sa 10/17/18 Furosemide [Lasix] 60 mg PO DAILY #12 tab 10/29/18 HYDROcodone/ACETAMINOPHEN [[place] 5-325] 1 ea PO Q4H PRN #10 tab 11/03/18 Acetaminophen [Tylenol] 650 mg PO Q6H PRN 11/06/18 Metoprolol Succinate [Toprol Xl] 50 mg PO DAILY 11/06/18 hydrOXYzine HCL [Atarax] 25 mg PO Q4H PRN 11/06/18 Azithromycin [Zithromax] 250 mg PO DAILY #4 tab 11/07/18 Cefdinir [Omnicef] 300 mg PO Q12H #20 cap 11/07/18
[2018-11-07 13:44] VITALS: BP 93/61
[2018-11-07] MEDS ORDERED: ROSUVASTATIN CALCIUM 20 MG TABLET PO SCH (21:00)
== END 2018-11-07 14:55 | disposition home or self-care (01) ==
LOC: ER 19:41 → MS 19:41
PROVIDERS: ADMIT Family Medicine; ATTEND Family Medicine
DX: J90 Pleural effusion, not elsewhere classified; F43.12 Post-traumatic stress disorder, chronic; R07.9 Chest pain, unspecified; J18.1 Lobar pneumonia, unspecified organism
CPT/HCPCS: 36415; 71020; 71046; 80053; 83519; 83880; 84484; 85025; 93005; 96365; 96367; 96375; 99285; G0378; J2405